=== PATIENT | male | born 1950 ===

== ENCOUNTER 2019-04-13 13:19 | Inpatient (IN) | payer OTHER ==
[~2019-04-13] VITALS: Ht 172.7 cm; Wt 71.7 kg
[~2019-04-13 13:19] MED LIST: COMBIVIR; INTELENCE25 MG PO; ISENTRESS25 MG PO; TRICOR48 MG PO; [UNRECOGNIZED DRUG - OTHER]
[2019-04-13] MEDS ORDERED: DIOVAN40 MG (13:36)
[2019-04-13] MEDS ORDERED: AMLODIPINE BESYL5 MG (13:37)
[2019-04-15] MEDS ORDERED: LAMIVUDINE-ZID1 EACH PO (09:54)
[2019-04-15] MEDS ORDERED: SELZENTRY300 MG PO (14:31)
[2019-04-20] MEDS ORDERED: CIPRO500 MG PO (11:56)
[2019-04-20] MEDS ORDERED: FLAGYL500MG PO (11:59)
[2019-04-20] MEDS ORDERED: QUESTRAN PACKET4 GM PO (11:59)
== END 2019-04-20 13:14 | disposition home or self-care (01) | DRG 343 ==
LOC: ER 13:19 → SURH 04-14 07:23 → SEC-K 04-14 07:23 → SURH 04-14 14:27
PROVIDERS: ADMIT Surgery
PROC: 0D9J40Z Drainage of Appendix with Drainage Device, Percutaneous Endoscopic Approach (ICD-10-PCS; 2019-04-14)
PROC: 0WQF4ZZ Repair Abdominal Wall, Percutaneous Endoscopic Approach (ICD-10-PCS; 2019-04-14)
PROC: 0DTJ4ZZ Resection of Appendix, Percutaneous Endoscopic Approach (ICD-10-PCS; principal; 2019-04-14 07:00)
DX: K35.20 Acute appendicitis with generalized peritonitis, without abscess (principal); K42.9 Umbilical hernia without obstruction or gangrene

== ENCOUNTER 2021-03-26 00:02 | Emergency (ER) | payer OTHER ==
[~2021-03-26] VITALS: Ht 172.7 cm; Wt 67.1 kg
[~2021-03-26 00:02] MED LIST changes: +AMLODIPINE BESYL5 MG; +CIPRO500 MG PO; +DIOVAN40 MG; +FLAGYL500MG PO; +LAMIVUDINE-ZID1 EACH PO; +QUESTRAN PACKET4 GM PO; +SELZENTRY300 MG PO
[2021-03-26] MEDS ORDERED: LOSARTAN-HCTZ1 EAC2 (00:15)
[2021-03-26] MEDS ORDERED: AMLODIPINE-OLM1 EAC2 (00:15)
[2021-03-26] MEDS ORDERED: CARDURA XL4 MG (00:18)
[2021-03-26] MEDS ORDERED: LEVSIN0.125 MG PO (03:44)
[2021-03-26] MEDS ORDERED: PROTONIX20 MG PO (03:44)
[2021-03-26] MEDS ORDERED: INTESTINEX680 M2 PO (03:44)
[2021-03-26] MEDS ORDERED: CIPROFLOXACIN500 MG PO (03:44)
[2021-03-26] MEDS ORDERED: PEPCID20 MG PO (03:44)
== END 2021-03-26 04:21 | disposition home or self-care (01) ==
LOC: ER 00:02
DX: K57.30 Diverticulosis of large intestine without perforation or abscess without bleeding (principal); K59.09 Other constipation; R10.84 Generalized abdominal pain; R19.7 Diarrhea, unspecified

== ENCOUNTER 2021-10-24 17:02 | Emergency (ER) | payer OTHER ==
[~2021-10-24] VITALS: Ht 172.7 cm; Wt 68.9 kg
[~2021-10-24 17:02] MED LIST changes: +AMLODIPINE-OLM1 EAC2; +CARDURA XL4 MG; +CIPROFLOXACIN500 MG PO; +INTESTINEX680 M2 PO; +LEVSIN0.125 MG PO; +LOSARTAN-HCTZ1 EAC2; +PEPCID20 MG PO; +PROTONIX20 MG PO
[2021-10-24] MEDS ORDERED: CRESTOR20 MG (18:03)
== END 2021-10-24 22:47 | disposition home or self-care (01) ==
LOC: ER 17:02
DX: R10.31 Right lower quadrant pain (principal)